=== PATIENT | male | born 1975 | race Caucasian/White ===

== ENCOUNTER 2023-04-13 10:20 | Emergency (ER) | payer MEDICARE, OTHER, SELFPAY ==
[2023-04-13 10:31] VITALS: BP 136/99
[2023-04-13 11:19] VITALS: BP 137/98
[2023-04-13 11:24] LABS: Glucose - Point of Care 131 mg/dl (70-99)
[2023-04-13 11:48] LABS: % Basophils 0.3 % (0-2); % Eosinophils 0.9 % (0-6); % Immature Granulocytes 0.6 % (0-0.5); % Monocytes 7.4 % (1.7-9.3); % Neutrophils 85.8 % (42.2-75.2); Absolute Eosinophils 0.1 10^3/uL (0-0.7); Absolute Immature Granulocytes 0.1 10^3/uL (0-0.05); Absolute Lymphocytes 0.6 10^3/uL (1.2-3.4); Absolute Monocytes 0.9 10^3/uL (0.1-0.6); Absolute Neutrophils 10.9 10^3/uL (1.4-6.5); Hematocrit 53.4 % (39.0-52.0); Hemoglobin 18.9 g/dL (13.0-18.0); Mean Corp Hgb Conc. 35.4 g/dL (33.0-37.0); Mean Corpuscular Hgb 32.1 pg (27.0-31.0); Mean Corpuscular Volume 90.7 fL (80.0-94.0); Nucleated Red Blood Cells % 0 % (-); Platelet Count 181 10^3/uL (130-400); Red Blood Cell Count 5.89 10^6/uL (4.70-6.10); Red Cell Dist. Width 12.8 % (11.5-14.5); White Blood Cell Count 12.7 10^3/uL (4.8-10.8)
[2023-04-13 12:02] LABS: ALT (SGPT) 29 U/L (0-50); AST (SGOT) 43 U/L (17-59); Albumin 4.8 g/dl (3.5-5.0); Alkaline Phosphatase 109 U/L (38-126); Blood Urea Nitrogen 17 mg/dl (9-20); Calcium 9.5 mg/dl (8.4-10.2); Carbon Dioxide 22 mmol/L (22-30); Chloride 104 mmol/L (98-107); Glucose 133 mg/dl (70-99); Lipase 162 U/L (23-300); Potassium 4.8 mmol/L (3.5-5.1); Sodium 136 mmol/L (135-145); Total Bilirubin 3.1 mg/dl (0.2-1.3); Total Protein 7.3 g/dl (6.3-8.2); eGFR > 60.00
[2023-04-13] MEDS: ZOFRAN 4 MG IV (12:18)
[2023-04-13] MEDS: NSS 1000 IV ×2 (12:18→14:00)
[2023-04-13 12:21] VITALS: BP 134/89
[2023-04-13 14:02] VITALS: BP 132/84
--- NOTE | 2023-04-13 14:50 | ED.GENMED ---
History of Present Illness
General
Chief Complaint: Abdominal Symptoms
Source: patient
Time Seen by Provider: 04/13/23 10:53
Travel History
Have you had any contact with someone who has COVID-19?: Unable to Answer
Do you have any symptoms of coronavirus? Fever > 100 degrees, chills, cough, shortness of breath, sore throat, loss of taste or smell, muscle aches, or headache?: Yes
Symptoms:: nvd
History of Present Illness
History of Present Illness:
47-year-old male who just returned from [place] yesterday. States he felt fine yesterday and today woke up in the middle of the night with nausea, vomiting diarrhea. States he vomited more than 30 times and just could not keep anything down at
home. Does report some pain on the right side of his abdomen. States he tried not to drink any the water in [place]. No hematemesis. No melena. No hematochezia. No fevers.
Past History
Past History
ED Past Medical History: Asthma, GERD, Hypercholesterolemia, NIDDM, Renal failure, Psychiatric (depression) and Other (kidney stones, ELIO, RA)
ED Past Surgical History: Other (Palestine teeth)
Patient has exhibited threatening behavior?: No
Social History
Tobacco: Smoker (1 pack/day x 18yrs)
Alcohol: None
Drug: None
Personal:
Living: with family
Employment: Employed
Family History
Family History: Hypertension
Phy Exam
Physical Exam
Physical Exam:
CONSTITUTIONAL Patient alert and oriented to person, place and time. Vital signs reviewed.
HEAD atraumatic, normocephalic.
EYES eyelids normal to inspection, Pupils equally round and reactive to light, Extraocular muscles intact, Conjunctiva normal, Sclera normal.
NECK normal range of motion, Trachea midline, no jugular venous distention.
RESPIRATORY CHEST No respiratory distress noted, Chest expansion equal, Bilateral breath sounds clear.
CARDIOVASCULAR regular and tachycardic.
ABDOMEN moderate right-sided abdominal tenderness
BACK normal inspection, no obvious deformities
UPPER EXTREMITY range of motion normal, Motor strength normal, no cyanosis, no edema.
LOWER EXTREMITY range of motion normal, Motor strength normal, no cyanosis, no edema.
NEURO Speech normal, No focal motor deficits, [place] coma scale 15, Memory normal, Cranial Nerves intact to screening exam.
SKIN skin warm, dry, and normal in color.
PSYCHIATRIC patient oriented to person place and time, Normal affect.
Course
Orders/Labs/Results
Orders:
Orders
04/13/23 11:21
IV Insert/Care/Rem.- Treatment PRN
04/13/23 11:24
Complete Blood Count/With Diff Urgent
Comprehensive Metabolic Panel Urgent
Lipase Urgent
04/13/23 11:41
0.9% Sodium Chloride 1000 ml [Nss] 1,000 ml IV BOLUS
04/13/23 11:51
Ondansetron Injectable [Zofran] 4 mg IV NOW STA
04/13/23 11:52
CT Abd/Pel (IV only)-DH only Urgent
Comment:
Reason For Exam: R sided abd pain, vomiting, DM hx
04/13/23 13:48
0.9% Sodium Chloride 1000 ml [Nss] 1,000 ml IV BOLUS
04/13/23 14:11
Stool Culture Urgent
RACHEL Source: Feces/Stool
Specimen Description:
Date Specimen was Collected: 04/13/23
Time Specimen was Collected: 14:05
Abnormal Lab Results
04/13/23 04/13/23
11:23 11:24
WBC 12.7 H 10^3/uL
(4.8-10.8)
Hgb 18.9 H g/dL
(13.0-18.0)
Hct 53.4 H %
(39.0-52.0)
MCH 32.1 H pg
(27.0-31.0)
Abs Immat Gran (auto) 0.1 H 10^3/uL
(0-0.05)
Absolute Neuts (auto) 10.9 H 10^3/uL
(1.4-6.5)
Absolute Lymphs (auto) 0.6 L 10^3/uL
(1.2-3.4)
Absolute Monos (auto) 0.9 H 10^3/uL
(0.1-0.6)
Immature Gran % 0.6 H %
(0-0.5)
Neutrophils % 85.8 H %
(42.2-75.2)
Lymphocytes % 5.0 L %
(20.5-51.1)
Glucose 133 H mg/dl
(70-99)
Total Bilirubin 3.1 H mg/dl
(0.2-1.3)
POC Glucose 131 H mg/dl
(70-99)
04/13/23 11:24
04/13/23 11:24
Vital Signs
Pulse: 96
Initial and Last Documented VS:
Initial Vital Signs
Temp Pulse Resp BP Pulse Ox
98.1 F 134 16 136/99 98
04/13/23 10:31 04/13/23 10:31 04/13/23 10:31 04/13/23 10:31 04/13/23 10:31
Last Documented Vital Signs
Temp Pulse Resp BP Pulse Ox
98.1 F 120 14 134/89 95
04/13/23 10:31 04/13/23 12:30 04/13/23 11:19 04/13/23 12:21 04/13/23 12:30
MDM/Problems Addressed
MDM/Problems Addressed:
Vomiting, diarrhea
*Radiology
Radiology exam reviewed: radiology read reviewed
*Pulse Oximetry
Patient hypoxic: no
*Marble Carver Interpretation
Rate: tachycardiac
Interpretation: abnormal
Rhythm: sinus
*Critical Care Note
Total Time (30-74mins, 75-104mins- exclusive of procedures): Not Applicable
Data Reviewed
Source: patient
Patient Management
Escalation/DeEscalation of care consider admission/obs:
Patient feels much better on reevaluation. CT noted. Patient is already being followed for that finding by an oncologist. Question whether this could be viral in nature versus traveler's diarrhea. Stool culture sent. Okay for discharge and
outpatient follow-up. Recommended slow progression of the diet.
ED Attending Note
-
Portions of this chart may have been created with voice recognition software.� Occasional wrong word or��sound alike� substitutions may have occurred due to the inherent limitations of voice recognition software.
Discharge Plan
Departure
Patient Disposition: Home (Routine Discharge)
Date of Disposition: 04/13/23
Time of Disposition: 14:54
Patient with high blood pressure during this ER visit?: Yes
Discharge Problem:
Vomiting, Diarrhea
Instructions: Diarrhea in adolescents and adults, Clear Liquid Diet, Dehydration, Adult (DC), Nausea and Vomiting, Adult (DC)
Prescriptions:
New
ondansetron HCl 4 mg tablet
4 mg PO Q8H PRN (Reason: nausea and vomiting) 4 Days Qty: 20 0RF
No Action
celecoxib 200 MG capsule
200 mg PO BID
atorvastatin 40 MG tablet
80 mg PO QPM
cetirizine 10 MG tablet
10 mg PO DAILY PRN (Reason: SEASONAL ALLERGIES)
clonazepam 0.5 MG tablet
0.5 mg PO BID
atenolol 25 MG tablet
25 mg PO DAILY
pantoprazole 40 MG tablet,delayed release (DR/EC)
40 mg PO BID
lisinopril 5 MG tablet
5 mg PO DAILY
risperidone 0.5 MG tablet
0.5 mg PO BID
nortriptyline 50 MG capsule
100 mg PO HS
cholecalciferol (vitamin D3) 1,000 UNITS tablet
1,000 units PO DAILY
psyllium husk (aspartame) [Metamucil Fiber Singles] 1 PACKET powder in packet
1 packet PO DAILY
tamsulosin 0.4 MG capsule
0.4 mg PO BID
Referrals:
Chandra Mejia MD [Family Provider] -
Activity Restrictions/Additional Instructions:
Drink plenty fluids and advance diet slowly as discussed. Return immediately for intractable vomiting, worsening symptoms or any other concerns. Please see your doctor in the next 2 to 3 days for follow-up and reevaluation.
Interventions
Interventions:
*Risk Screen - Suicide Last Done: 04/13/23 10:31
*Neglect/Abuse Screening Last Done: 04/13/23 10:31
ED- Fall Risk Assessment Last Done: 04/13/23 12:37
*ED COVID-19 Vaccine History Last Done: 04/13/23 10:31
EO-Qiqhpp-Duchkvahto Assessment Last Done: 04/13/23 12:37
[2023-04-13 15:00] VITALS: BP 132/100
== END 2023-04-13 16:12 | disposition home or self-care (01) ==
LOC: EMR 10:20
PROVIDERS: EMERGENCY PHYSICIAN Emergency Medicine; FAMILY PHYSICIAN Internal Medicine
DX: R11.2 Nausea with vomiting, unspecified (principal); R19.7 Diarrhea, unspecified; F17.210 Nicotine dependence, cigarettes, uncomplicated; R03.0 Elevated blood-pressure reading, without diagnosis of hypertension
CPT/HCPCS: 99284; 96374; 96361 ×2; 74177; 80053; 82962; 83690; 85025; 87045; 87046; 87427; Q9967

== ENCOUNTER → 2023-11-02 09:56 | Outpatient (REF) | payer MEDICARE, OTHER, SELFPAY | LOC: MRI 3T 09:56 | PROVIDERS: ATTENDING PHYSICIAN Orthopaedic Surgery; FAMILY PHYSICIAN Internal Medicine | DX: M25.572 Pain in left ankle and joints of left foot (principal) | CPT/HCPCS: 73721 ==

== ENCOUNTER → 2025-01-31 17:14 | Outpatient (REF) | payer MEDICARE, OTHER, SELFPAY | LOC: MRI 17:14 | PROVIDERS: ATTENDING PHYSICIAN Internal Medicine Rheumatology; FAMILY PHYSICIAN Internal Medicine | DX: K68.9 Other disorders of retroperitoneum (principal) | CPT/HCPCS: 74183; A9575 ==